=== PATIENT | male | born 1975 | race Caucasian/White ===

== ENCOUNTER 2017-11-20 12:32 | Emergency (ER) | payer MEDICAID ==
[~2017-11-20] VITALS: Ht 182.9 cm; Wt 95.0 kg
[2017-11-20] MEDS ORDERED: SODIUM CHLORIDE 0.9% 1,000 ML IV ONE (13:07)
[2017-11-20 15:00] LABS: BASOPHILS % 0.1 % (0.0-2.0); EOSINOPHILS % 1.6 % (0.0-5.0); HEMATOCRIT. 39.7 % (42.0-52.0); HEMOGLOBIN. 13.6 g/dL (14.0-18.0); LYMPHOCYTES % 17.9 % (20.0-50.0); MEAN CORPUSCULAR HEMOGLOBIN 30.4 pg (28.0-32.0); MEAN CORPUSCULAR VOLUME 88.9 fL (80.0-94.0); MEAN PLATELET VOLUME 8.1 fl (7.4-10.4); MONOCYTES % 6.6 % (2.0-8.0); NEUTROPHILS % 73.8 % (40.0-76.0); PLATELET 225 x1000/uL (130-400); RED BLOOD CELL COUNT 4.47 mill/uL (4.7-6.1); RED CELL DISTRIBUTION WIDTH 15.1 % (11.6-14.6)
[2017-11-20 15:07] LABS: PROTHROMBIN TIME 10.5 sec (9.1-11.1)
[2017-11-20 15:29] LABS: HCG SCREEN NEGATIVE
[2017-11-20 15:34] LABS: AMMONIA 34 uMol/L (<32)
[2017-11-20 15:37] LABS: CHLORIDE 100 mEq/L (98-107)
[2017-11-20 15:50] LABS: ETHANOL BLOOD < 10 mg/dL
[2017-11-20 15:54] LABS: CREATINE KINASE 96 IU/L (39-308)
[2017-11-20] MEDS ORDERED: DEXAMETHASONE 10 MG/ML VIAL IV ONE (16:00)
[2017-11-20] MEDS ORDERED: LEVETIRACETAM 500MG PREMIX 100 ML IV ONE ×2 (16:15)
[2017-11-20] MEDS ORDERED: GADOBENATE DIMEGLUMINE 529 MG/ML 10ML IV ONE (16:20)
[2017-11-20] MEDS ORDERED: LEVETIRACETAM 1000MG/100ML 100 ML IV SCH (17:00)
[2017-11-20 17:42] LABS: CLARITY URINE CLEAR (CLEAR); COLOR URINE YELLOW (YELLOW); KETONES URINE NEGATIVE (NEGATIVE); LEUKOCYTE ESTERASE URINE NEGATIVE (NEGATIVE); NITRITE URINE NEGATIVE (NEGATIVE); OCCULT BLOOD URINE NEGATIVE (NEGATIVE); PH URINE 8.5 (4.5-8.0); PROTEIN URINE NEGATIVE (NEGATIVE); SPECIFIC GRAVITY URINE 1.014 (1.005-1.030); UROBILINOGEN URINE 0.2 E.U./dL (0.2-1.0)
[2017-11-20 17:59] LABS: *AMPHETAMINES SCREEN URINE NEGATIVE (NEGATIVE); *BARBITURATES SCREEN URINE NEGATIVE (NEGATIVE); *BENZODIAZEPINES SCREEN URINE NEGATIVE (NEGATIVE); *COCAINE SCREEN URINE NEGATIVE (NEGATIVE); METHADONE URINE SCREEN NEGATIVE (NEGATIVE); OPIATES URINE SCREEN NEGATIVE (NEGATIVE)
[2017-11-20 18:00] LABS: CANNABINOID URINE SCREEN NEGATIVE (NEGATIVE); PHENCYCLIDINE URINE SCREEN NEGATIVE (NEGATIVE)
[2017-11-20] MEDS ORDERED: VANCOMYCIN 1 G PREMIX 200 ML IV ONE (18:45)
[2017-11-20] MEDS ORDERED: CEFTRIAXONE 1 G PREMIX 50 ML IV ONE (18:45)
[2017-11-21 00:23] VITALS: BP 101/74
== END 2017-11-21 01:43 | disposition left against medical advice (07) ==
LOC: ER 13:22 → EDBEDREQSVC 15:12 → EDBEDREQ 15:12 → EDBEDREQTM 15:12 → EDBEDREQ 15:55 → EDBEDREQTM 15:55 → CANBEDREQ 17:06 → ER 11-21 01:43
DX: G93.9 Disorder of brain, unspecified (principal); G40.909 Epilepsy, unspecified, not intractable, without status epilepticus; Z91.14 Patient's other noncompliance with medication regimen; F64.8 Other gender identity disorders
CPT/HCPCS: 36415; 70450; 70553; 71045; 80048; 80185; 80305; 81003; 82140; 82550; 83735; 84703; 85025; 85610; 85730; 87040; 96361; 96365; 96367; 96375; 99291; A9577; G0482; J0696; J1100; J1953; J3370; J7030; Z7610